=== PATIENT | female | born 1990 | race Caucasian/White ===

== ENCOUNTER 2017-10-25 23:25 | Emergency (ER) | payer OTHER ==
[~2017-10-25] VITALS: Ht 165.1 cm; Wt 54.4 kg
[2017-10-26 00:35] VITALS: BP 99/64
--- NOTE | 2017-10-26 01:01 | ED GI/GU/ABDOMINAL COMPLAINT ---
History of Present Illness General Chief Complaint: Female Urogenital Problems Stated Complaint: ? YEAST INF PER PT Source: patient Exam Limitations: no limitations Vital Signs & Intake/Output Vital Signs & Intake/Output Vital Signs Date Time Temp Pulse Resp B/P B/P Pulse O2 O2 Flow FiO2 Mean Ox Delivery Rate 10/26 0035 97.8 62 18 99/64 98 Room Air Reconcile Medications Fluconazole (Diflucan) 150 MG TABLET 1 TAB PO QWEEK vaginal yeast infection x 2 doses Triage Nurses Notes Reviewed? yes ? n Is pt currently ? No Onset: Gradual Duration: day(s): Timing: recent history Quality/Severity: itchy vaginal discharge Location: vaginal Radiation: no radiation Associated Symptoms: itchy white vaginal discharge HPI: 27 yo woman presents with itchy white vaginal discharge. She shares that she was treated last week for a urinary tract infection. She completed her antibiotics and then shortly afterwards developed an itchy white vaginal discharge. "Im pretty sure it's a yeast infection." She is otherwise well. Past History Travel History Traveled to [place] past [place] No Medical History Any Pertinent Medical History? 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 No Review of Systems Review of Systems Constitutional: Reports: no symptoms. EENTM: Reports: no symptoms. Respiratory: Reports: no symptoms. Cardiovascular: Reports: no symptoms. GI: Reports: no symptoms. Genitourinary: Reports: no symptoms. Musculoskeletal: Reports: no symptoms. Skin: Reports: no symptoms. Neurological/Psychological: Reports: no symptoms. Hematologic/Endocrine: Reports: no symptoms. Immunologic/Allergic: Reports: no symptoms. All Other Systems: Reviewed and Negative Physical Exam Physical Exam General Appearance: well developed/nourished, no apparent distress Head: atraumatic, normal appearance Eyes: Bilateral: normal appearance. Ears, Nose, Throat, Mouth: hearing grossly normal, moist mucous membrane Neck: normal inspection, supple Respiratory: no respiratory distress Gastrointestinal: normal bowel sounds, soft, non-tender, no organomegaly Pelvic: pt declines pelvic exam Back: normal inspection Extremities: normal range of motion Neurologic/Psych: no motor/sensory deficits, awake, alert, oriented x 3 Skin: intact, normal color, warm/dry Core Measures ACS in differential dx? No Sepsis Present: No Sepsis Focused Exam Completed? No Progress Differential Diagnosis: vaginal yeast infection vs other. Plan of Care: Orders Procedure Date/time Status URINE 10/25 2330 Complete URINALYSIS 10/25 2330 Complete Laboratory Tests 10/26/17 0025: Urinalysis LIGHT H, Urine Color YEL, Urine Clarity HAZY H, Urine pH 6.0, Ur Specific [place] 1.010, Urine Protein NEG, Urine Ketones NEG, Urine Nitrite NEG, Urine Bilirubin NEG, Urine Urobilinogen 0.2, Ur Leukocyte Esterase SMALL H, Ur Microscopic SEDIMENT EXAMINED, Urine WBC 1-3 H, Ur Epithelial Cells FEW, Urine Bacteria FEW H, Urine Hemoglobin NEG, Urine Glucose NEG, Urine Test NEGATIVE Initial ED EKG: none Departure Departure Disposition: HOME OR SELF CARE Condition: Stable Clinical Impression Primary Impression: Vaginal yeast infection Referrals: Cali AZUL,Lauro Frausto (PCP/Family) Departure Forms: Customer Survey General Discharge Information Prescriptions: Current Visit Scripts Fluconazole (Diflucan) 1 TAB PO QWEEK #2 TAB x 2 doses Comments 10/26/17, 1:04am... pt declines pelvic exam, asks for diflucan... discussed at length... given history, vaginal yeast infection is most likely . rx for diflucan sent to pharmacy... if not better, she will return.
[2017-10-26] MEDS ORDERED: DIFLUCAN150 M1 PO (01:05)
== END 2017-10-26 01:19 ==
LOC: ERH 23:25
DX: B37.3 Candidiasis of vulva and vagina (principal); N89.8 Other specified noninflammatory disorders of vagina
CPT/HCPCS: 81001; 81025

== ENCOUNTER 2017-11-15 16:13 | Emergency (ER) | payer OTHER ==
[~2017-11-15] VITALS: Ht 165.1 cm; Wt 56.7 kg
[~2017-11-15 16:13] MED LIST: DIFLUCAN150 M1 PO
--- NOTE | 2017-11-15 16:45 | ED GENERAL ADULT ---
History of Present Illness General Chief Complaint: General Adult Stated Complaint: "I'M FREEZING.FEEL LIKE I'M GONNA PASS OUT" PER PT Source: patient Exam Limitations: no limitations Vital Signs & Intake/Output Vital Signs & Intake/Output Vital Signs Date Time Temp Pulse Resp B/P B/P Pulse O2 O2 Flow FiO2 Mean Ox Delivery Rate 11/15 1850 99.0 75 16 119/77 97 Room Air 11/15 1801 99.1 11/15 1718 Room Air 11/15 1717 101.0 11/15 1655 101.0 78 16 112/59 97 Room Air 11/15 1616 98.6 86 18 106/69 98 Room Air Allergies Coded Allergies: No Known Allergies (10/26/17) Reconcile Medications Fluconazole (Diflucan) 150 MG TABLET 1 TAB PO QWEEK vaginal yeast infection x 2 doses Ibuprofen 600 MG TABLET 1 TAB PO Q6P PRN PAIN with food Ondansetron (Zofran Odt) 4 MG TAB.RAPDIS 1 TAB SL Q6 PRN NAUSEA/VOMITING Triage Note: 27 YO FEMALE TO TRIAGE FOR EVAL OF FEELING COLD AND FEELING FAINT. DENIES ANY PAIN. STATES SHE WAS FEELING FINE THIS AM WHEN SHE WOKE UP THIS AM. DENEIS CHANCE OF . DENIES [place]. Triage Nurses Notes Reviewed? yes : No Patient currently breastfeeds: No HPI: Patient presents for evaluation of abrupt onset of feeling cold that began about 1 hour prior to arrival. Upon awakening this morning the patient states she felt hot. She has also felt dizzy and like she was "going to pass out". In addition the patient states she has a "migraine headache" for which she tried ibuprofen yesterday, having no relief. In addition the patient is experiencing a substernal chest pressure and nausea with no vomiting. Patient denies cough, back pain or abdominal pain but has felt fatigued. Past History Travel History Traveled to [place] past [place] day No Medical History Any Pertinent Medical History? 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 No Review of Systems Review of Systems Constitutional: Reports: see HPI. EENTM: Reports: no symptoms. Respiratory: Reports: no symptoms. Cardiovascular: Reports: chest pain. GI: Reports: see HPI. Genitourinary: Reports: no symptoms. Musculoskeletal: Reports: no symptoms. Skin: Reports: no symptoms. Neurological/Psychological: Reports: no symptoms. Hematologic/Endocrine: Reports: no symptoms. Immunologic/Allergic: Reports: no symptoms. All Other Systems: Reviewed and Negative Physical Exam Physical Exam General Appearance: see below Comments: Gen.: Well-nourished, well-developed, no acute respiratory distress. Head: Normocephalic, atraumatic. Eyes: Normal inspection bilaterally Ears: Normal inspection bilaterally Nose: Normal inspection Throat/mouth : Moist mucosa Neck: Supple, full range of motion, no goiter Heart: Regular rate and rhythm, no murmurs rubs or gallops Lungs: Clear to auscultation bilaterally with normal air entry Chest: Nontender Back: Normal range of motion Abdomen: Soft, nontender, nondistended, normal bowel sounds Extremities: Normal range of motion grossly, equal radial pulses, no cyanosis clubbing or edema Neurologic: Cranial nerves grossly intact, speech is clear Skin: warm and dry, no rashes Psychiatric: Calm, cooperative, no apparent delusions or hallucinations Core Measures ACS in differential dx? No CVA/TIA Diagnosis: No Sepsis Present: No Sepsis Focused Exam Completed? No Progress Differential Diagnoses I considered the following diagnoses in my evaluation of the patient: Viral syndrome, occult bacterial infection, hypothyroidism, electrolyte abnormality, anemia Plan of Care: Orders Procedure Date/time Status FREE T4 11/15 1705 Active URINALYSIS 11/15 1652 Complete TSH REFLEX 11/15 1652 Active MONOSPOT 11/15 1652 Complete COMPREHENSIVE METABOLIC PANEL 11/15 1652 Active CBC WITHOUT DIFFERENTIAL 11/15 1652 Complete Current Medications Sig/Garth Start time Last Medication Dose Stop Time Status Admin Ibuprofen 600 MG ONCE ONE 11/15 1929 UNVr (Motrin) 11/15 1930 Laboratory Tests 11/15/17 1710: Urinalysis LIGHT H, Urine Color STRAW, Urine Clarity CLEAR, Urine pH 7.0, Ur Specific [place] 1.010, Urine Protein NEG, Urine Ketones NEG, Urine Nitrite NEG, Urine Bilirubin NEG, Urine Urobilinogen 0.2, Ur Leukocyte Esterase TRACE H, Ur Microscopic SEDIMENT EXAMINED, Urine RBC RARE, Urine WBC 1-3 H, Ur Epithelial Cells MOD H, Urine Bacteria FEW H, Urine Hemoglobin NEG, Urine Glucose NEG 11/15/17 1705: Anion Gap 9, Estimated GFR > 60, BUN/Creatinine Ratio 21.3, Glucose 98, Calcium 9.3, Total Bilirubin 0.3, AST 32, ALT 30, Alkaline Phosphatase 53, Total Protein 7.4, Albumin 4.4, Globulin 3.0, Albumin/Globulin Ratio 1.5, Free T4 Pending, TSH &T3 &Free T4 Intrp 0.139 L, CBC w Diff NO MAN DIFF REQ, RBC 4.07 L, MCV 83.1, MCH 27.8, MCHC 33.4, RDW 16.3 H, MPV 10.0, Gran % 60.7, Lymphocytes % 29.8, Monocytes % 8.3, Eosinophils % 0.5, Basophils % 0.7, Absolute Granulocytes 3.9, Absolute Lymphocytes 1.9, Absolute Monocytes 0.5, Absolute Eosinophils 0, Absolute Basophils 0, Infectious [place] Titer NEGATIVE Diagnostic Imaging: Discussed w/RAD: Radiology Read. CXR Impression: PATIENT: AFSHIN RILEY PRESENT AGE: 27 PATIENT ACCOUNT NO: [id number] : 91 LOCATION: [facility] ORDERING PHYSICIAN: Crispin Momin MD SERVICE DATE: 11/15/17 EXAM TYPE: RAD - XRY-CHEST XRAY, TWO VIEWS EXAMINATION: XR CHEST CLINICAL INFORMATION: Chest pain COMPARISON: None TECHNIQUE: 2 views of the chest were obtained. FINDINGS: Heart size is normal. Mediastinal contours are normal. Lungs are clear without consolidation, effusion or pneumothorax. Visualized osseous structures appear intact. Mild levoscoliosis centered at the mid to lower thoracic spine. IMPRESSION: No acute cardiopulmonary process. 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 < Electronically signed in Other Vendor System> SIGNED BY: Samantha Suarez MD [id number] Initial ED EKG: none Comments: 11/15/2017 7:27:43 PM I have updated afshin on test results including the slightly low TSH level. She has declined repeatedly additional IV fluids. I have offered ibuprofen along with oral fluids to confirm that the patient is able to take medications and fluids when she returns home. Departure Departure Disposition: HOME OR SELF CARE Condition: Stable Clinical Impression Primary Impression: Viral syndrome Referrals: Cali AZUL,Lauro Frausto (PCP/Family) Additional Instructions: Maintain a good fluid intake. If you are only drinking fluids then please take Gatorade Powerade Pedialyte or other a little like containing fluids and to you' re able to tolerate solid food again. Ibuprofen 600 mg every 6 hours as needed for fever and muscle aches or chills. He may take a dose of Tylenol in between if necessary. Follow-up with your primary care physician if not improving over the next 3-5 days. Return if any concerns or sudden worsening. Please note that there might be incidental findings in your evaluation that are unrelated to the current emergency department visit. Please notify your primary care doctor about this emergency department visit in order to obtain and review all of the testing performed so that these incidental findings can be monitored as needed. If you had an x-ray performed, please understand that some fractures or other findings may not be seen on the initial set of x-rays. If your symptoms persist you might need a repeat set of x-rays to check for such a fracture. If you had a laceration evaluated, please understand that foreign bodies such as glass or wood may not be visible to the naked eye or on plain x-rays. If the wound becomes red, swollen, increasingly more painful or if there is any drainage from the wound, please have it reevaluated by a physician for the possibility of a retained foreign body. If you're unable to follow up as outlined in the discharge instructions please return to the emergency department. Thank you for choosing the [facility] Emergency Department for your care. It was a pleasure to serve you today. Crispin Momin M.D. [facility] Departure Forms: Customer Survey General Discharge Information Prescriptions: Current Visit Scripts Ibuprofen 1 TAB PO Q6P PRN PAIN #20 TAB with food Ondansetron (Zofran Odt) 1 TAB SL Q6 PRN NAUSEA/VOMITING #10 TAB Critical Care Note Critical Care Note Critical Care Time: non-applicable
[2017-11-15 17:22] LABS: ABSOLUTE BASOPHIL COUNT 0 /CUMM (0.0-0.2); ABSOLUTE EOSINOPHIL COUNT 0 /CUMM (0.0-0.7); ABSOLUTE GRANULOCYTE CT 3.9 /CUMM (1.4-6.5); ABSOLUTE LYMPH COUNT 1.9 /CUMM (1.2-3.4); ABSOLUTE MONOCYTE COUNT 0.5 /CUMM (0.10-0.60); BASOPHIL % 0.7 % (0.0-2.0); EOSINOPHIL % 0.5 % (0-5); GRANULOCYTE % 60.7 % (42.2-75.2); HEMATOCRIT 33.8 % (37-47); MEAN CORPUSCULAR HGB 27.8 PG (27.0-31.0); MEAN CORPUSCULAR HGB CONC 33.4 G/DL (33.0-37.0); MEAN CORPUSCULAR VOLUME 83.1 FL (81.0-99.0); PLATELET COUNT 187 /CUMM (130-400); RBC DISTRIBUTION WIDTH 16.3 % (11.5-14.5); RED BLOOD CELL CT 4.07 /CUMM (4.20-5.40); WHITE BLOOD CELL COUNT 6.5 /CUMM (4.8-10.8)
--- NOTE | 2017-11-15 17:53 | RADIOLOGY REPORT ---
EXAMINATION: XR CHEST CLINICAL INFORMATION: Chest pain COMPARISON: None TECHNIQUE: 2 views of the chest were obtained. FINDINGS: Heart size is normal. Mediastinal contours are normal. Lungs are clear without consolidation, effusion or pneumothorax. Visualized osseous structures appear intact. Mild levoscoliosis centered at the mid to lower thoracic spine. IMPRESSION: No acute cardiopulmonary process.
[2017-11-15 18:50] VITALS: BP 119/77
[2017-11-15] MEDS ORDERED: ZOFRAN ODT4 M1 SL (19:31)
[2017-11-15] MEDS ORDERED: IBUPROFEN600 M1 PO (19:31)
== END 2017-11-15 19:43 ==
LOC: ERH 16:13
PROVIDERS: Emergency Medicine
DX: B34.9 Viral infection, unspecified (principal); R42 Dizziness and giddiness; G43.909 Migraine, unspecified, not intractable, without status migrainosus
CPT/HCPCS: 71046; 81001; 96374; J0131